=== PATIENT | female | born 1955 | race Caucasian/White ===

== ENCOUNTER 2020-10-20 17:26 | Inpatient (IN) | payer MEDICARE ==
[~2020-10-20] VITALS: Ht 162.6 cm; Wt 52.2 kg
--- NOTE | 2020-10-20 17:45 | NUR ---
RN NOTE- PT BEING ADMITTED TO [facility]. PT UNABLE TO CARE FOR SELF, NON-MED COMPLIANT WITH PMHX OF MULTIPLE SCLEROSIS, KIDNEY FAILURE AND A DX OF PSYCHOSIS NOS. ON FACE O FACE ASSESSMENT- PT IS ALERT ORIENTED TO PERSON ONLY ,CONFUSED, POOR HISTORIAN WITH NO BEHAVIORAL ISSSUES AT PRESENT. VS- BP-134/83, HR- 90, RR- 19, T- 98.1, SATURATION 98% RA. ACCU CHECK BS- 97. PT IS 5'4" TALL AND 115 POUNDS. PT REFUSED MRSA SWAB. DR CELSO HERNANDEZ AND DR WILCOX NOTIFIED OF ADMISSION . ORDERS RECEIVED. KOSHER DIET ORDERED. PT DOUGLAS CALLED BEFORE PT CAME TO LET US KNOW IT IS THE SABBATH AND HE IS NOT ANSWERING HIS PHONE UNTIL TOMORROW EVENING. PT CUREENTLY Addendum: 10/20/20 at 1839 by EVELYN CLEMENTS RN PT HAS A UTI PER REPORT BUT KEFLEX NOT STARTED YET PTS ALLERGIES IS UNDOCUMENTED. PT IS COVID NEGATIVE. REMAINING DC PROCESS ENDORSING TO NOC SHIFT.
[2020-10-20] MEDS ORDERED: RISP0.5T65 PO (17:50)
[2020-10-20] MEDS ORDERED: DIVA-76 PO (17:50)
[2020-10-20] MEDS ORDERED: MAG HYDROX/AL HYDROX/SIMETH 30 ML UDC PO PRN (18:00)
[2020-10-20] MEDS ORDERED: MAGNESIUM HYDROXIDE 30 ML UDC PO PRN (18:00)
[2020-10-20] MEDS ORDERED: BLOOD SUGAR DIAGNOSTIC 1 EACH STRIP IN ONE (18:00)
[2020-10-20] MEDS ORDERED: TEMAZEPAM 7.5 MG CAPSULE PO PRN (18:00)
[2020-10-20] MEDS ORDERED: LORAZEPAM 0.5 MG TABLET PO PRN (18:00)
--- NOTE | 2020-10-20 18:00 | NUR ---
GPS/RN-NOTES DR. WILCOX MADE AWARE OF PATIENT ADMISSION. ALL STANDING ORDERS WAS CARRIED OUT.
[2020-10-20 18:53] VITALS: BP 134/83
--- NOTE | 2020-10-20 19:55 | NUR ---
RECEIVED PATIENT RESTING IN BED. PT IS A & O X 1, CONFUSED, FORGETFUL, DISORIENTED, DISORGANIZED, UNKEMPT, POOR HYGIENE, DISHEVELED, UNCOOPERATIVE, FLAT AFFECT, PRESSURED SPEECH, RAMBLING AT TIMES, SUSPICIOUS, PARANOID, POOR HISTORIAN, EASILY AGITATED, DENIES SI/HI AT THIS TIME, REFUSING TO ANSWER ANY QUESTIONS, WANTS TO SLEEP/REST. POOR HISTORIAN. SLEEPING INTERMITTENTLY. REFUSED SNACK BUT HAD JUICE & WATER. AMBULATORY WITH ASSIST, UNSTEADY. REFUSED SKIN ASSESSMENT, REFUSED TO BE TOUCHED. NO ACUTE DISTRESS NOTED. BREATHING EVEN & UNLABORED. CONTINENT OF B & BM. PER AM RN, DOUGLAS NELSON WILL NOT ANSWER PHONE UNTIL Friday ON 10/21/2020 DUE TO BEING BUDDHISM ([facility]). ALL NEEDS MET. ENVIRONMENTAL SAFETY CHECKS DONE. BED ALARM ON. BED IN LOW LOCKED POSITION. WILL CONTINUE TO MONITOR
[2020-10-20 20:05] VITALS: BP 138/69
[2020-10-20 20:11] VITALS: BP 138/69
[2020-10-20] MEDS: OLANZAPINE 10 MG TABLET PO SCH (21:40)
--- NOTE | 2020-10-20 21:45 | NUR ---
GPS RN NOTE FAMILY MEMBER DROPPED OFF FOOD WITH SECURITY, OFFERED FOOD TO THE PATIENT, HAD FEW BITES & DRANK JUICE/WATER. LEFT OVER FOOD LABELED & PLACED IN THE REFRIGERATOR
--- NOTE | 2020-10-21 04:18 | NUR ---
GPS RN NOTE: PATIENT WOKE UP REPEATING TO THE NURSE," WHY YOU GAVE ME THAT MEDICINE, IT MADE MY MOUTH NUMB, CLAIMING THAT NURSE TOLD HER TO TAKE MEDICINE OTHERWISE SHE WILL BE TRANSFERRED." PATIENT TOOK ZYPREXA SCHEDULED AFTER NAME & REASON WAS EXPLAINED TO THE PATIENT. PATIENT CONTINUED," I NEED TO CALL 911, I AM HAVING BAD SYMPTOMS, WHY I WAS GIVEN THAT MEDICINE, MY DOCTOR NEVER GAVE ME THAT MEDICINE." ASKED THE PATIENT IF SHE IS ALLERGIC TO ANY MEDICINE, PATIENT IS UNABLE TO RECALL ABOUT ANY ALLERGIES DUE TO CONFUSION. PATIENT IS IN NO ACUTE DISTRESS AT THIS TIME, ABLE TO WALK ON HER OWN PACE, NO OTHER SYMPTOMS NOTED AT THIS TIME. PATIENT EASILY ANXIOUS, PARANOID, SUSPICIOUS. PATIENT PACED IN THE HALLWAY FOR FEW MINUTES & WAS REDIRECTED BACK TO HER BED.
--- NOTE | 2020-10-21 04:30 | NUR ---
GPS RN NOTE PATIENT IS AWAKE & LAYING IN BED AT THIS TIME.
--- NOTE | 2020-10-21 04:32 | NUR ---
GPS RN NOTE PATIENT IS IN GOWN FROM ANOTHER HOSPITAL & REFUSED TO CHANGE TO NEW GOWN, REFUSED TO BE TOUCHED & REFUSED TO CHANGE HER GOWN BY HERSELF.
--- NOTE | 2020-10-21 06:00 | NUR ---
GPS RN NOTE PATIENT SLEEPING COMFORTABLY AT THIS TIME. NO ACUTE DISTRESS NOTED.
[2020-10-21 07:44] LABS: ALBUMIN 3.1 g/dL (3.4-5.0); BILIRUBIN,TOTAL 0.4 mg/dL (0.2-1.0); CALCIUM, SERUM 9.7 mg/dL (8.5-10.1); CREATININE 1.7 mg/dL (0.6-1.3); POTASSIUM 4.2 mmol/L (3.5-5.1); TOTAL PROTEIN, SERUM 6.4 g/dL (6.4-8.2)
[2020-10-21 07:48] LABS: CHOLESTEROL 184 mg/dL (<200); HDL CHOLESTEROL 74 mg/dL (40-60); LDL 97 mg/dL (0-99); TRIGLYCERIDES 79 mg/dL (30-150)
[2020-10-21 08:00] VITALS: BP 110/58
[2020-10-21] MEDS: SERTRALINE HCL 50 MG TABLET PO SCH (09:18)
[2020-10-21] MEDS: CEPHALEXIN MONOHYDRATE 500 MG CAPSULE PO SCH ×2 (13:13→21:26)
[2020-10-21 16:25] VITALS: BP 162/90
[2020-10-21 19:56] LABS: CREATININE, URINE 43.3 MG/DL (30.0-125.0); URINE TOTAL PROTEIN 11.6 mg/dL (0-11.9)
[2020-10-21 20:01] LABS: BILIRUBIN,URINE NEGATIVE (NEGATIVE); BLOOD, URINE NEGATIVE Ery/uL (NEGATIVE); COLOR,URINE YELLOW (YELLOW); LEUKOCYTE ESTERASE ,URINE SMALL (NEGATIVE); NITRITE, URINE NEGATIVE (NEGATIVE); PROTEIN,URINE NEGATIVE (NEGATIVE); UGLUCOSE NEGATIVE (NEGATIVE); UROBILINOGEN,URINE 0.2 EU/dL (0.2)
[2020-10-21 20:12] LABS: BACTERIA,URINE 1+ /HPF (None Seen); EOSINOPHIL,URINE None Seen; RBC,URINE 0-2 /HPF (0-2); SQUAMOUS EPITHELIAL CELL,UR Few /HPF (None Seen)
[2020-10-21 20:48] VITALS: BP 112/66
[2020-10-21 21:07] VITALS: BP 112/66
[2020-10-21] MEDS: OLANZAPINE 10 MG TABLET PO SCH (22:25)
--- NOTE | 2020-10-21 22:36 | NUR ---
GPS RN NOTE PATIENT IS AWAKE & IN & OUT OF HER BED, STATING," I SHOULDN'T HAVE TAKEN THE ANTIBIOTIC BECAUSE IF I REFUSE TO TAKE MEDICINE, MY INSURANCE DOESN'T HAVE TO PAY FOR IT & I WILL SAVE MONEY." PATIENT IS WORRIED ABOUT SAVING MONEY & THINKING TO REFUSE MEDICATIONS. EXPLAINED TO THE PATIENT THAT MEDICATION WILL HELP HER TO GET BETTER BUT PATIENT IS KEEPS REPEATING SAME STATEMENT OVER & OVER. REDIRECTED TO BED. WILL CONTINUE TO MONITOR FOR ANY CHANGES.
--- NOTE | 2020-10-22 06:24 | NUR ---
GPS RN NOTE PATIENT REFUSED AM LABS DESPITE OF EXPLANATIONS X3, PARANOID, SUSPICIOUS, STATED," WHAT IS THE COST ? I DON'T WANT ANY TEST." DISPATCH SPECIALIST WILL TRY TO REPROACH THE PATIENT LATER TO DRAW BLOOD.
[2020-10-22 08:00] VITALS: BP 162/89
[2020-10-22] MEDS: SERTRALINE HCL 50 MG TABLET PO SCH (08:26)
[2020-10-22] MEDS: CEPHALEXIN MONOHYDRATE 500 MG CAPSULE PO SCH ×2 (08:26→21:14)
[2020-10-22 09:36] LABS: BASOPHILS % (AUTO) 0.4 % (0.0-2.0); EOSINOPHILS % (AUTO) 2.3 % (0.0-6.0); HEMATOCRIT 39 % (33-45); HEMOGLOBIN 12.4 g/dL (11.5-14.8); LYMPHOCYTES # (AUTO) 1.8 /CMM (0.8-4.8); MEAN CORPUSCULAR HGB CONC 32 g/dl (31.0-36.0); MEAN CORPUSCULAR VOLUME 94 fL (82-100); MONOCYTES # (AUTO) 0.3 /CMM (0.1-1.30); MONOCYTES % (AUTO) 4.5 % (2.0-12.0); NEUTROPHILS # (AUTO) 3.4 /CMM (1.8-8.9); NEUTROPHILS % (AUTO) 60.8 % (43.0-81.0); PLATELET COUNT (AUTO) 324 /CMM (150-450); RED BLOOD CELL COUNT(AUTO) 4.12 MIL/uL (4.0-5.2); WHITE BLOOD COUNT (AUTO) 5.6 K/uL (4.3-11.0)
[2020-10-22 10:01] LABS: ALBUMIN 3.4 g/dL (3.4-5.0); BILIRUBIN,TOTAL 0.4 mg/dL (0.2-1.0); CREATININE 1.9 mg/dL (0.6-1.3); PHOSPHORUS 3.4 mg/dL (2.5-4.9); POTASSIUM 3.8 mmol/L (3.5-5.1)
[2020-10-22 10:09] LABS: THYROID STIMULATING HORMONE 0.429 uIU/mL (0.358-3.74)
[2020-10-22 16:00] VITALS: BP 136/100
[2020-10-22 20:00] VITALS: BP 143/91
--- NOTE | 2020-10-22 20:00 | NUR ---
GPS-RN NOTE: PATIENT REFUSED WEEKLY SKIN BODY ASSESSMENT.
[2020-10-22] MEDS: OLANZAPINE 10 MG TABLET PO SCH (21:14)
[2020-10-23 07:06] LABS: PTH, INTACT 68 pg/mL (15-65)
[2020-10-23 08:00] VITALS: BP 123/74
[2020-10-23] MEDS: CEPHALEXIN MONOHYDRATE 500 MG CAPSULE PO SCH ×2 (09:23→21:17)
[2020-10-23] MEDS: SERTRALINE HCL 50 MG TABLET PO SCH (09:23)
--- NOTE | 2020-10-23 10:32 | NUR ---
SW Family Contact: SW spoke with patient's , Aj Dailey ([phone]) and discussed treatment and discharge plan. Aj provide collateral information and stated that the patient has been off her medications for about 1 year and has been refusing to follow up with physicians. Aj inquired about filing for probate conservatorship. This sw guided Aj regarding the steps for filing for probate conservatorship and provided him with a resource for [place] ([phone]). This SW stated that she will let the psychiatrist here in the hospital know about the requested for filing for probate conservatorship.
--- NOTE | 2020-10-23 10:48 | NUR ---
CALEB Initial Discharge Plan: Patient currently lives at home [address] [place] [address] lives with Aj Dailey ([phone]). Patient will return home upon discharge. CALEB will continue to work with patient, family, and MD to ensure a safe and proper discharge plan.
[2020-10-23 16:00] VITALS: BP 101/60
[2020-10-23 20:38] VITALS: BP 109/51
[2020-10-23] MEDS: OLANZAPINE 10 MG TABLET PO SCH (21:17)
[2020-10-24 07:07] LABS: *SPE A/G RATIO 1.1 (0.7-1.7); *SPE ALBUMIN 3.3 g/dL (2.9-4.4); *SPE ALPHA-1-GLOBULIN 0.2 g/dL (0.0-0.4); *SPE ALPHA-2-GLOBULIN 0.9 g/dL (0.4-1.0); *SPE M-SPIKE Not Observed g/dL (Not Observed); *SPEGAMMA GLOBULIN 0.9 g/dL (0.4-1.8)
[2020-10-24 08:00] VITALS: BP 133/87
[2020-10-24] MEDS: SERTRALINE HCL 50 MG TABLET PO SCH (08:48)
[2020-10-24] MEDS: CEPHALEXIN MONOHYDRATE 500 MG CAPSULE PO SCH ×2 (08:48→21:20)
[2020-10-24 16:00] VITALS: BP 95/79
--- NOTE | 2020-10-24 18:58 | NUR ---
RN NOTE:DR. DAS AWARE OF BUN 34 AND CREATININE 1.9 WITH NEW ORDER PUSH FLUIDS ENCOURAGE PATIENT TO DRINK WATER .WILL CONTINUE TO MONITOR .
[2020-10-24] MEDS: OLANZAPINE 10 MG TABLET PO SCH (21:20)
[2020-10-24 21:26] VITALS: BP 113/75
[2020-10-25 08:00] VITALS: BP 107/60
[2020-10-25] MEDS: SERTRALINE HCL 50 MG TABLET PO SCH (08:35)
[2020-10-25] MEDS: CEPHALEXIN MONOHYDRATE 500 MG CAPSULE PO SCH ×2 (08:35→21:05)
--- NOTE | 2020-10-25 12:55 | NUR ---
Hearing: Court hearing today upheld for probable cause GD.
[2020-10-25 16:00] VITALS: BP 130/62
[2020-10-25 19:58] VITALS: BP 134/77
[2020-10-25] MEDS: OLANZAPINE 10 MG TABLET PO SCH (21:05)
[2020-10-26 08:00] VITALS: BP 140/84
[2020-10-26] MEDS: SERTRALINE HCL 50 MG TABLET PO SCH (08:15)
[2020-10-26] MEDS: CEPHALEXIN MONOHYDRATE 500 MG CAPSULE PO SCH (08:15)
[2020-10-26 16:00] VITALS: BP 138/64
[2020-10-26 19:57] VITALS: BP 138/80
--- NOTE | 2020-10-26 20:46 | NUR ---
GPS RN NOTE: RECEIVED PT IN ROOM RESTING, PT IS A/O X1-2, CONFUSED, DISORIENTED, UNKEPT,LOOSE ASSOCAITIONS, PT IS TALKING TO SLEF, HYPERVERBAL, RAMBLING, GARBLED SPEECH, DENIES SI/HI, DENIES AVH, VSS AT THIS TIME, BED IN LOCKED AND LOWEST POSITION, WILL CONTINUE TO MONITOR Q15MIN FOR SAFETY AND BEHAVIOR
[2020-10-26] MEDS: ACETAMINOPHEN 325 MG TABLET PO PRN (21:10)
[2020-10-26] MEDS: OLANZAPINE 10 MG TABLET PO SCH (21:10)
--- NOTE | 2020-10-26 21:14 | NUR ---
GPS RN NOTE: PAIN PT C/O OF MINOR BACK PAIN 01/24, ASKED FOR TYLENOL, VSS, ADMIN TYLENOL 650MG PRN @ 0, WILL CONTINUE TO MONITOR Q15MIN FOR SAFETY AND BEHAVIOR.
[2020-10-27 07:44] VITALS: BP 136/90
[2020-10-27] MEDS: SERTRALINE HCL 50 MG TABLET PO SCH (08:25)
--- NOTE | 2020-10-27 09:00 | NUR ---
RN NOTE- PT CONFUSED DISORGANIZED ALERT MED COMPLIANT, PO INTAKE GOOD REDIRECTION NEEDED FREQUENTLY
--- NOTE | 2020-10-27 11:37 | NUR ---
SNF Contact: This play writer contacted [facility] ([phone]), [facility] ([phone]), and [facility] an assisted living and stated they have covid patient's and will not accept new pt's.
--- NOTE | 2020-10-27 11:38 | NUR ---
Psychiatrist Contact: This race and sports book writer received a phone call from patient's psychiatrist Dr. Mckeon from [facility] ([phone]) who stated for this race and sports book writer to try [facility] nursing ([phone]), [facility] ([phone]), and [facility] is an assisted living. This race and sports book writer explained they are not accepting new patient's due to covid.
--- NOTE | 2020-10-27 13:37 | NUR ---
Psychiatrist Contact: This selling underwriter contacted patient's psychiatrist Dr. Mckeon from [facility] ([phone]) and stated pt is accepted at [facility]. She requested to speak to Dr. Craven, this selling underwriter notified Dr. Craven.
--- NOTE | 2020-10-27 13:38 | NUR ---
CALEB Family Contact: SW spoke with patient's , Aj Dailey ([phone]) requested for a nursing facility. This chief writer stated pt is accepted at [facility]. He was agreeable with this plan.
--- NOTE | 2020-10-27 13:45 | NUR ---
SNF Contact: Karen, inside account executive at [facility]; ([phone]) stated pt is accepted.
--- NOTE | 2020-10-27 15:00 | NUR ---
RN NOTE- DR SAVAGE [phone] CALLED TO SPEAK [address] WILCOX[address] WILCOX NOTIFIED.
[2020-10-27 16:17] VITALS: BP 144/87
--- NOTE | 2020-10-27 19:30 | NUR ---
GPS RN NOTE, RECEIVED PATIENT AWAKE AND IN BED, NO S/S OR COMPLAINTS OF PAIN AT THIS TIME. PATIENT IS DISPLAYING NO S/S OF APPARENT DISTRESS AT THIS TIME. PATIENT BREATHING IS UNLABORED WITH EQUAL RISE AND FALL OF THE CHEST. PATIENT IS ALERT AND ORIENTED X 2 ON ROOM AIR WITH A SPO2 97%. PATIENT IS COMPLIANT WITH MEDICATIONS, ANXIOUS AT TIMES, PARANOID, HYPERVERBAL, AND COOPERATIVE. PATIENT DENIES SUICIDAL AND HOMICIDAL IDEATIONS AT THIS TIME. PATIENT ASSISTED WITH TURNING AND REPOSITIONING Q2HR AND PRN FOR COMFORT AND CIRCULATION. PATIENT HAS NO NEEDS AT THIS TIME. PATIENT EDUCATED ON THE USE OF THE CALL RIVERA. PATIENT BED SIDE RAILS UP X 2 FOR SAFETY. PATIENT BED IS LOCKED, LOW, WITH BED ALARM ON. WILL CONTINUE TO MONITOR THIS PATIENT Q15 MINUTES WITH THE HELP OF STAFF TO MAINTAIN SAFETY.
[2020-10-27 19:38] VITALS: BP 123/74
[2020-10-27] MEDS: OLANZAPINE 10 MG TABLET PO SCH (21:10)
[2020-10-28 07:55] VITALS: BP 131/80
[2020-10-28] MEDS: SERTRALINE HCL 50 MG TABLET PO SCH (08:40)
[2020-10-28] MEDS: ACETAMINOPHEN 325 MG TABLET PO PRN (15:57)
[2020-10-28 16:03] VITALS: BP 118/75
[2020-10-28 19:58] VITALS: BP 129/51
[2020-10-28] MEDS: OLANZAPINE 10 MG TABLET PO SCH (21:39)
[2020-10-29 08:00] VITALS: BP 147/75
[2020-10-29 08:22] LABS: BASOPHILS % (AUTO) 0.7 % (0.0-2.0); EOSINOPHILS % (AUTO) 3.4 % (0.0-6.0); HEMATOCRIT 33 % (33-45); LYMPHOCYTES # (AUTO) 2.9 /CMM (0.8-4.8); LYMPHOCYTES % (AUTO) 46.5 % (20.0-44.0); MEAN CORPUSCULAR HGB CONC 33 g/dl (31.0-36.0); MEAN CORPUSCULAR VOLUME 94 fL (82-100); MONOCYTES # (AUTO) 0.4 /CMM (0.1-1.30); MONOCYTES % (AUTO) 6.7 % (2.0-12.0); NEUTROPHILS # (AUTO) 2.7 /CMM (1.8-8.9); NEUTROPHILS % (AUTO) 42.7 % (43.0-81.0); PLATELET COUNT (AUTO) 301 /CMM (150-450); RED BLOOD CELL COUNT(AUTO) 3.54 MIL/uL (4.0-5.2); WHITE BLOOD COUNT (AUTO) 6.3 K/uL (4.3-11.0)
[2020-10-29] MEDS: SERTRALINE HCL 50 MG TABLET PO SCH (09:28)
[2020-10-29 10:05] LABS: ALBUMIN 2.8 g/dL (3.4-5.0); BILIRUBIN,TOTAL 0.2 mg/dL (0.2-1.0); CALCIUM, SERUM 9.8 mg/dL (8.5-10.1); CREATININE 1.9 mg/dL (0.6-1.3); MAGNESIUM 2.2 mg/dL (1.8-2.4); TOTAL PROTEIN, SERUM 5.9 g/dL (6.4-8.2)
[2020-10-29] MEDS: risperiDONE 0.25 MG TABLET PO SCH ×3 (12:45→21:24)
[2020-10-29] MEDS: DIVALPROEX SODIUM 125 MG CAP.SPRINK PO SCH ×3 (13:40→17:36)
[2020-10-29 16:00] VITALS: BP 135/54
[2020-10-29 20:39] VITALS: BP 146/78
[2020-10-30] MEDS: risperiDONE 0.25 MG TABLET PO SCH (08:25)
[2020-10-30] MEDS: DIVALPROEX SODIUM 125 MG CAP.SPRINK PO SCH ×2 (08:25→13:03)
[2020-10-30 08:54] VITALS: BP 130/80
--- NOTE | 2020-10-30 09:00 | NUR ---
RN NOTE-PT LABILE STATING THAT SHES GOING TO 'FALL'. PT NOT UNSTEADY... THOUGH STATES SHE "DOESNT WANT TO LEAVE AND IF I FALL, I WONT HAVE TO LEAVE" PLACED IN TAM CHAIR FOR SAFETY. MED COMPLIANT, PO INTAKE GOOD, ANXIOUS ABOUT DC.
--- NOTE | 2020-10-30 11:24 | NUR ---
SNF Contact: CALEB spoke to Karen, education research analyst at [facility] ([phone]) and informed her that the pt is scheduled to be picked up around 1:45pm. CALEB stated that she faxed the negative COVID results to [phone].
--- NOTE | 2020-10-30 12:14 | NUR ---
Discharge Note: Patient will be discharged to [facility] facility to [facility] [place] [address] [place] [address]; ) via ambulance transportation at 1:45PM. Color Depositing Machine Tender spoke with Karen, senior net web developer at [facility] [place]; ([phone]), who stated patient will be accepted at facility today. Patients Aj ([phone]) is aware and agreeable. Upon discharge, pt appears to be in a dysphoric mood and presents with a distressed affect. Pt appears to be alert and oriented x4 (time, place, self and situation). Pt appears to be ambulatory with an unsteady gait. Pt denies suicidal and homicidal ideation as well as auditory and visual hallucinations. Patients outpatient psychiatrist Dr. Mckeon ([phone]) is aware of discharge. Patient is aware and agreeable with discharge plans. Patient will continue to follow-up with her (Psychiatrist) Dr. Crump located at [address] [place] [phone]; and (Shop Helper) Dr. Reyes located at [address] [place] [address]; . The Choice of Vendor and the multidisciplinary exit care form was done, printed, signed, and given to the patient.
--- NOTE | 2020-10-30 14:35 | NUR ---
RN NOTE- DISCHARGE/ [facility]. PT IS ALERT ORIENTED TO PERSON PLACE. CONFUSED. VS STABLE, DC PLANNING AND REPORT CALLED IN TO FACILITY. FLU SHOT AND PNA REFUSED. VALUABLES RETURNED TO PT AND STAFF AWARE. NO SKIN ISSUES REQUIRING PHOTOS. ID [id number] REMOVED. ESCORTED OFF UNIT BY STAFF AND AMBULANCE STAFF.
== END 2020-10-30 14:35 | DRG 885 ==
LOC: GPS 17:26
PROVIDERS: ADMIT Psychiatry & Neurology Psychiatry; ATTEND Nurse Practitioner Acute Care
DX: F25.0 Schizoaffective disorder, bipolar type (principal); N17.0 Acute kidney failure with tubular necrosis; N18.4 Chronic kidney disease, stage 4 (severe); F79 Unspecified intellectual disabilities; N39.0 Urinary tract infection, site not specified; E44.1 Mild protein-calorie malnutrition; E87.0 Hyperosmolality and hypernatremia; N28.1 Cyst of kidney, acquired; E86.0 Dehydration; F29 Unspecified psychosis not due to a substance or known physiological condition; Z73.6 Limitation of activities due to disability; B96.89 Other specified bacterial agents as the cause of diseases classified elsewhere; F39 Unspecified mood [affective] disorder
CPT/HCPCS: 36415; 76770-TC; 80053-TC; 80061-TC; 81001; 82550-TC; 82570-TC; 82962-TC; 83735-TC; 83970; 84100-TC; 84155; 84155-TC; 84165; 84300-TC; 84443-TC; 85025-TC; 87086-TC; 97116-TC; 97530-TC